=== PATIENT | male | born 1970 | race Caucasian/White ===

== ENCOUNTER 2017-08-04 15:16 | Inpatient (IN) | payer OTHER ==
--- NOTE | 2017-08-04 15:34 | PDOC ---
Rapid Medical Evaluation Chief Complaint: Edema Time Seen by Provider: 08/04/17 15:28 Medical Evaluation: Allergies Allergy/AdvReac Type Severity Reaction Status Date / Time No Known Allergies Allergy Verified 08/04/17 15:26 08/04/17 15:29 I have performed a brief in-person evaluation of this patient. The patient presents with a chief complaint of: right knee and now with worsen pain./ swelling since last Friday , no relief with Motrin . Pertinent physical exam findings: swelling/ erythema from knee down. I have ordered the following: CBC, CMP, Blood Culture x 2 The patient will proceed to the ED for further evaluation
--- NOTE | 2017-08-04 16:54 | PDOC ---
History of Present Illness - General Chief Complaint: Edema Stated Complaint: RT ANKLE SWELLING Time Seen by Provider: 08/04/17 15:28 History Source: Patient Exam Limitations: No Limitations - History of Present Illness Initial Comments: CHIEF COMPLAINT: 47 y/o afebrile male with no significant PMH c/o right lower extremity swelling and redness x 5 days. HISTORY OF PRESENT ILLNESS: the patient states he started with a small ache to his right knee a few weeks ago. 5 days ago his right leg became very swollen and red. He states he was seen at the clinic on friday and was prescribed doxycycline. He has taken it since then with no improvement. He is also taking ibuprofen for swelling. He denies pain, f/c, n/v/d, CP, SOB, cough, hemoptysis, abd pain, back pain, hematuria, dysuria, trauma to leg, recent travel, smoking history. Vital signs on arrival are within normal limits. REVIEW OF SYSTEMS: GENERAL/CONSTITUTIONAL: no fever/chills. No weakness. No weight change. MUSCULOSKELETAL: +right lower leg swelling and redness. No neck or back pain. SKIN: No rash or easy bruising. NEUROLOGIC: No headache, vertigo, loss of consciousness, or loss of sensation. PHYSICAL EXAM: VITAL_SIGNS: within normal limits GENERAL_APPEARANCE: alert, cooperative, no obvious discomfort. MENTAL_STATUS: speech clear, oriented X 3, responds appropriately to questions. NEURO: motor intact and sensory intact in injured extremity. EXTREMITIES: good pulse in injured extremity. significant edema to right lower extremity with mild erythema. No warmth to touch as compared to left LE. No calf pain. negative mauricio's sign. No streaking SKIN: warm, dry, good color. Past History - Past Medical History Allergies/Adverse Reactions: Allergies Allergy/AdvReac Type Severity Reaction Status Date / Time No Known Allergies Allergy Verified 08/04/17 15:26 Home Medications: Ambulatory Orders Doxycycline Hyclate 100 mg PO BID 08/04/17 Ibuprofen [Motrin -] 600 mg PO TID 08/04/17 COPD: No Other medical history: DENIES. - Suicide/Smoking/Psychosocial Hx Smoking History: Never smoked *Physical Exam - Vital Signs Last Vital Signs Temp Pulse Resp BP Pulse Ox 97.8 F 71 19 128/74 96 08/04/17 15:26 08/04/17 15:26 08/04/17 15:26 08/04/17 15:26 08/04/17 15:26 ED Treatment Course - LABORATORY CBC & Chemistry Diagram: 08/04/17 17:16 08/04/17 17:16 - RADIOLOGY Radiology Studies Ordered: Category Date Time Status DUPLEX VASCUL US-1 LEG [US] Stat Ultrasound 08/04/17 16:40 Ordered Medical Decision Making - Medical Decision Making A/P: 47 y/o male with cellulitis of the right LE without improvement after doxy for 3 days. Patient had negative xrays at clinic and denies trauma to affected leg. Plan is as follows: 1. Labs 2. Ultrasound 3. IV CLINDA Spoke with Dr. Mlcean and she accepted admission. miriam sal for ID consult. Patient aware of plan for admission. *DC/Admit/Observation/Transfer Diagnosis at time of Disposition: Cellulitis Qualifiers: Site of cellulitis: extremity Site of cellulitis of extremity: lower extremity Laterality: right Qualified Code(s): L03.115 - Cellulitis of right lower limb - Discharge Dispostion Condition at time of disposition: Stable Decision to Admit order: Yes - Referrals - Patient Instructions - Post Discharge Activity
[2017-08-04 17:59] LABS: BASO % 0.5 % (0-2.0); EOS % 2.9 % (0-4.5); HEMATOCRIT 39.2 % (35.4-49); HEMOGLOBIN 13.5 GM/dL (11.7-16.9); LYMPH % 29.1 % (8-40); MCH 31.6 pg (25.7-33.7); MCHC 34.3 g/dl (32.0-35.9); MEAN CELL VOLUME 92.2 fl (80-96); MEAN PLT VOLUME 8.6 fl (7.5-11.1); MONO % 7.5 % (3.8-10.2); PLATELET COUNT 239 K/MM3 (134-434); RBC 4.25 M/mm3 (4.00-5.60); WHITE BLOOD COUNT 5.8 K/mm3 (4.0-10.0)
[2017-08-04 18:21] LABS: ALBUMIN 3.8 g/dl (3.4-5.0); ALK PHOS 91 U/L (45-117); ANION GAP 7 (8-16); BILIRUBIN,TOTAL 0.5 mg/dL (0.2-1.0); BLOOD UREA NITROGEN 16 mg/dL (7-18); CALCIUM 8.5 mg/dL (8.5-10.1); CHLORIDE 107 mmol/L (98-107); CO2 26 mmol/L (21-32); CREATININE 0.8 mg/dL (0.7-1.3); GLUCOSE,RANDOM 92 mg/dL (74-106); POTASSIUM 4.3 mmol/L (3.5-5.1); SGOT/AST 18 U/L (15-37); SGPT/ALT 31 U/L (12-78); SODIUM 140 mmol/L (136-145); TOT PROT 7.3 g/dl (6.4-8.2)
[2017-08-04] MEDS ORDERED: CLINDAMYCIN 600MG PREMIX IVPB 600 MG/50 ML BAG IVPB ONE ×2 (18:22→18:26)
[2017-08-04 18:28] LABS: INR 1.02 (0.82-1.09); PROTHROMBIN TIME (PATIENT) 11.5 SEC (9.7-13.0)
[2017-08-04] MEDS ORDERED: ACETAMINOPHEN 325 MG TABLET (FP) PO PRN (20:46)
--- NOTE | 2017-08-04 20:47 | HP ---
Admitting History and Physical - Primary Care Physician PCP: Murphy Mclean - Admission History of Present Illness: the patient states he started with a small ache to his right knee a few weeks ago. 5 days ago his right leg became very swollen and red. He states he was seen at the clinic on friday and was prescribed doxycycline. He has taken it since then with no improvement. He is also taking ibuprofen for swelling. - Smoking History Smoking history: Never smoked Home Medications - Allergies Allergies/Adverse Reactions: Allergies Allergy/AdvReac Type Severity Reaction Status Date / Time No Known Allergies Allergy Verified 08/04/17 15:26 - Home Medications Home Medications: Ambulatory Orders Doxycycline Hyclate 100 mg PO BID 08/04/17 Ibuprofen [Motrin -] 600 mg PO TID 08/04/17 Physical Examination Vital Signs: Vital Signs Temperature 97.8 F 08/04/17 15:26 Pulse Rate 71 08/04/17 15:26 Respiratory Rate 19 08/04/17 15:26 Blood Pressure 128/74 08/04/17 15:26 O2 Sat by Pulse Oximetry (%) 98 08/04/17 20:22 Constitutional: Yes: No Distress HENT: Yes: Atraumatic Neck: Yes: Supple Cardiovascular: Yes: Regular Rate and Rhythm Respiratory: Yes: CTA Bilaterally Gastrointestinal: Yes: Normal Bowel Sounds Extremities: Yes: Other (rlex SWOLLEN MORE AROUND ANKLE, NONTENDER, NOT WARM OR RED) Edema: Yes Edema: RLE: 1+ Neurological: Yes: Alert, Oriented Labs: CBC, BMP 08/04/17 17:16 08/04/17 17:16 Problem List - Problems (1) Cellulitis Code(s): L03.90 - CELLULITIS, UNSPECIFIED Qualifiers: Site of cellulitis: extremity Site of cellulitis of extremity: lower extremity Laterality: right Qualified Code(s): L03.115 - Cellulitis of right lower limb Assessment/Plan Laboratory Tests 08/04/17 08/04/17 08/04/17 17:16 17:16 17:16 WBC 5.8 RBC 4.25 Hgb 13.5 Hct 39.2 MCV 92.2 MCH 31.6 MCHC 34.3 RDW 13.0 Plt Count 239 MPV 8.6 Absolute Neuts (auto) 3.5 Neutrophils % 60.0 Lymphocytes % 29.1 Monocytes % 7.5 Eosinophils % 2.9 Basophils % 0.5 Nucleated RBC % 0 PT with INR 11.50 INR 1.02 Sodium 140 Potassium 4.3 Chloride 107 Carbon Dioxide 26 Anion Gap 7 L BUN 16 Creatinine 0.8 Creat Clearance w eGFR > 60 Random Glucose 92 Calcium 8.5 Total Bilirubin 0.5 AST 18 ALT 31 Alkaline Phosphatase 91 Total Protein 7.3 Albumin 3.8 Active Medications Generic Name Dose Route Start Last Admin Trade Name Freq PRN Reason Stop Dose Admin Acetaminophen 650 mg 08/04/17 20:46 Tylenol - PO Q6H PRN FEVER Heparin Sodium (Porcine) 5,000 unit 08/04/17 22:00 Heparin - SQ BID BRAYDEN Active Medications Generic Name Dose Route Start Last Admin Trade Name Freq PRN Reason Stop Dose Admin Acetaminophen 650 mg 08/04/17 20:46 Tylenol - PO Q6H PRN FEVER Heparin Sodium (Porcine) 5,000 unit 08/04/17 22:00 Heparin - SQ BID BRAYDEN D/D R/O LYME DISEASE/ARTHRITIS CELLULITIS
[2017-08-05] MEDS: HEPARIN NA (PORCINE) 5,000 UNITS/ML 1ML VIAL SQ SCH ×3 (00:52→21:58)
[2017-08-05 08:03] LABS: BASO % 0.7 % (0-2.0); EOS % 3.1 % (0-4.5); HEMATOCRIT 37.6 % (35.4-49); HEMOGLOBIN 12.9 GM/dL (11.7-16.9); LYMPH % 28.2 % (8-40); MCH 31.5 pg (25.7-33.7); MCHC 34.5 g/dl (32.0-35.9); MEAN CELL VOLUME 91.4 fl (80-96); MEAN PLT VOLUME 8.6 fl (7.5-11.1); MONO % 7.1 % (3.8-10.2); NEUT % 60.9 % (42.8-82.8); PLATELET COUNT 215 K/MM3 (134-434); RBC 4.11 M/mm3 (4.00-5.60); RDW 12.9 % (11.9-15.9); WHITE BLOOD COUNT 5.4 K/mm3 (4.0-10.0)
[2017-08-05 08:37] VITALS: BMI 27.8
[2017-08-05] MEDS ORDERED: PT OWN MED DRAWER 7, Y5N ONE ×2 (10:07→17:27)
[2017-08-05] MEDS: DOXYCYCLINE HYCLATE 100 MG CAPSULE PO SCH ×2 (10:15→17:39)
[2017-08-05 11:43] LABS: CHLORIDE 109 mmol/L (98-107); SODIUM 142 mmol/L (136-145)
[2017-08-05 12:04] LABS: ALBUMIN 3.4 g/dl (3.4-5.0); ALK PHOS 78 U/L (45-117); ANION GAP 11 (8-16); BILIRUBIN,TOTAL 0.5 mg/dL (0.2-1.0); BLOOD UREA NITROGEN 14 mg/dL (7-18); CALCIUM 8.4 mg/dL (8.5-10.1); CO2 22 mmol/L (21-32); CREATININE 0.7 mg/dL (0.7-1.3); GLUCOSE,RANDOM 106 mg/dL (74-106); SGOT/AST 18 U/L (15-37); SGPT/ALT 30 U/L (12-78); TOT PROT 6.4 g/dl (6.4-8.2)
--- NOTE | 2017-08-05 12:51 | CON.ID ---
Consult Consult Specialty:: infectious diseases Reason for Consultation:: swelling of the leg. pain of the leg - History of Present Illness Chief Complaint: swelling of the leg History of Present Illness: the patient states he started with a small ache to his right knee a few weeks ago. 5 days ago his right leg became very swollen and red. He states he was seen at the clinic on friday and was prescribed doxycycline. He has taken it since then with no improvement. He is also taking ibuprofen for swelling. He denies pain, f/c, n/v/d, CP, SOB, cough, hemoptysis, abd pain, back pain, hematuria, dysuria, trauma to leg, recent travel, smoking history. patients work up was send including lymes work up from the clinic - History Source History Provided By: Patient Limitations to Obtaining History: No Limitations - Alcohol/Substance Use Hx Alcohol Use: No - Smoking History Smoking history: Never smoked Home Medications - Allergies Allergies/Adverse Reactions: Allergies Allergy/AdvReac Type Severity Reaction Status Date / Time No Known Allergies Allergy Verified 08/04/17 15:26 - Home Medications Home Medications: Ambulatory Orders Doxycycline Hyclate 100 mg PO BID 08/04/17 Ibuprofen [Motrin -] 600 mg PO TID 08/04/17 Doxycycline Hyclate [Vibramycin -] 100 mg PO BID@1000,1800 #54 capsule 08/06/17 Review of Systems - Review of Systems Constitutional: reports: No Symptoms Eyes: reports: No Symptoms HENT: reports: No Symptoms Neck: reports: No Symptoms Cardiovascular: reports: No Symptoms Respiratory: reports: No Symptoms Gastrointestinal: reports: No Symptoms Genitourinary: reports: No Symptoms Musculoskeletal: reports: No Symptoms, Other Integumentary: reports: Other Neurological: reports: No Symptoms Endocrine: reports: No Symptoms Hematology/Lymphatic: reports: No Symptoms Psychiatric: reports: No Symptoms Physical Exam Vital Signs: Vital Signs Temperature 99.3 F 08/05/17 09:36 Pulse Rate 66 08/05/17 09:36 Respiratory Rate 18 08/05/17 09:36 Blood Pressure 125/75 08/05/17 09:36 O2 Sat by Pulse Oximetry (%) 95 08/05/17 09:00 Constitutional: Yes: Well Nourished, No Distress, Calm Cardiovascular: Yes: Regular Rate and Rhythm Respiratory: Yes: Regular, CTA Bilaterally Gastrointestinal: Yes: Normal Bowel Sounds, Soft Extremities: Yes: Other (small gera seen on the knee joint) Integumentary: Yes: WNL Wound/Incision: Yes: Clean/Dry Neurological: Yes: Alert, Oriented Psychiatric: Yes: Alert, Oriented Labs: CBC, BMP 08/05/17 07:30 08/05/17 07:30 Assessment/Plan looking at this leg i think the cellulitis is very mnimal leg and ankle is more swollen ortho going to ahve a look at the patient Problem List - Problems (1) Cellulitis Code(s): L03.90 - CELLULITIS, UNSPECIFIED Qualifiers: Site of cellulitis: extremity Site of cellulitis of extremity: lower extremity Laterality: right Qualified Code(s): L03.115 - Cellulitis of right lower limb 2 swelling of the rt ;leg plan will start patient on abx continue doxy await for the report results from outside iof lymes positive stop all abx except doxy to be taken for a month
--- NOTE | 2017-08-05 19:08 | PN ---
Progress Note, Physician - Current Medication List Current Medications: Active Medications Acetaminophen (Tylenol -) 650 mg PO Q6H PRN PRN Reason: FEVER Doxycycline Hyclate (Vibramycin -) 100 mg PO BID@1000,1800 [facility] Last Admin: 08/05/17 17:39 Dose: 100 mg Heparin Sodium (Porcine) (Heparin -) 5,000 unit SQ BID [facility] Last Admin: 08/05/17 10:14 Dose: 5,000 unit - Objective Vital Signs: Vital Signs Temperature 98.3 F 08/05/17 18:00 Pulse Rate 59 L 08/05/17 18:00 Respiratory Rate 19 08/05/17 18:00 Blood Pressure 104/65 08/05/17 18:00 O2 Sat by Pulse Oximetry (%) 95 08/05/17 09:00 Constitutional: Yes: No Distress HENT: Yes: Atraumatic Neck: Yes: Supple Cardiovascular: Yes: Regular Rate and Rhythm Respiratory: Yes: CTA Bilaterally Gastrointestinal: Yes: Normal Bowel Sounds Extremities: Yes: WNL Edema: Yes Edema: RLE: 1+ Neurological: Yes: Alert, Oriented Labs: CBC, BMP 08/05/17 07:30 08/05/17 07:30 INR, PTT INR 1.02 (0.82-1.09) 08/04/17 17:16 Problem List - Problems (1) Cellulitis Assessment/Plan: on abx Code(s): L03.90 - CELLULITIS, UNSPECIFIED Qualifiers: Site of cellulitis: extremity Site of cellulitis of extremity: lower extremity Laterality: right Qualified Code(s): L03.115 - Cellulitis of right lower limb (2) Ankle swelling Assessment/Plan: lyme titer pending Code(s): M25.473 - EFFUSION, UNSPECIFIED ANKLE
[2017-08-06] MEDS: DOXYCYCLINE HYCLATE 100 MG CAPSULE PO SCH ×2 (10:01→18:09)
[2017-08-06] MEDS: HEPARIN NA (PORCINE) 5,000 UNITS/ML 1ML VIAL SQ SCH (10:02)
--- NOTE | 2017-08-06 13:44 | CON.ORTH ---
Consult Reason for Consultation:: right ankle swelling - Alcohol/Substance Use Hx Alcohol Use: No - Smoking History Smoking history: Never smoked Home Medications - Allergies Allergies/Adverse Reactions: Allergies Allergy/AdvReac Type Severity Reaction Status Date / Time No Known Allergies Allergy Verified 08/04/17 15:26 - Home Medications Home Medications: Ambulatory Orders Doxycycline Hyclate 100 mg PO BID 08/04/17 Ibuprofen [Motrin -] 600 mg PO TID 08/04/17 Physical Exam for Ortho Vital Signs: Vital Signs Temperature 98.0 F 08/06/17 10:00 Pulse Rate 69 08/06/17 10:00 Respiratory Rate 18 08/06/17 10:00 Blood Pressure 105/63 08/06/17 10:00 O2 Sat by Pulse Oximetry (%) 98 08/06/17 09:00 Labs: CBC, BMP 08/05/17 07:30 08/05/17 07:30 INR, PTT INR 1.02 (0.82-1.09) 08/04/17 17:16 - Lower Extremity Knee: Yes: Right, Erythema, Pain, Swelling, Other (nvi) Ankle: Yes: Right, Limited ROM, Swelling, Other (minimal tenderness, nvi) Imaging - Results Ultrasound: Report Reviewed, Image Reviewed Assessment/Plan 47 y/o afebrile male with no significant PMH c/o right lower extremity swelling and redness x 5 days. The patient states he started with a small ache to his right knee a few weeks ago. 5 days ago his right leg became very swollen and red. Does not recall any tick bites. He states he was seen at the clinic on friday and was prescribed doxycycline. He has taken it since then with no improvement. He is also taking ibuprofen for swelling. He denies pain, f/c, n/ v/d, CP, SOB, cough, hemoptysis, abd pain, back pain, hematuria, dysuria, trauma to leg, recent travel, smoking history. As per patient Lyme test came back positive as per PCP today. Lyme pending from here. a/p right ankle swelling- Lyme disease f/u official Lyme test from hospital continue doxycycline NSAIDs ID f/u wbat elevation ok to d/c from ortho pov d/w Dr. Velásquez
[2017-08-06] MEDS ORDERED: CELECOXIB 200 MG CAPSULE PO SCH (13:45)
[2017-08-06 14:51] VITALS: BP 94/56; PULSE 64; TEMP 98.2
--- NOTE | 2017-08-06 15:29 | PN ---
Progress Note, Physician History of Present Illness: patientr doing well swelling and erythema of the leg has decreased his lymes titres from the previous blood work from the other place is positive from lab here is negative - Current Medication List Current Medications: Active Medications Acetaminophen (Tylenol -) 650 mg PO Q6H PRN PRN Reason: FEVER Celecoxib (Celebrex -) 200 mg PO BID [facility]END[facility] SALE TO [facility] Doxycycline Hyclate (Vibramycin -) 100 mg PO BID@1000,1800 [facility] Last Admin: 08/06/17 10:01 Dose: 100 mg Heparin Sodium (Porcine) (Heparin -) 5,000 unit SQ BID [facility] Last Admin: 08/06/17 10:02 Dose: 5,000 unit - Objective Vital Signs: Vital Signs Temperature 98.2 F 08/06/17 14:45 Pulse Rate 64 08/06/17 14:45 Respiratory Rate 20 08/06/17 14:45 Blood Pressure 94/56 08/06/17 14:45 O2 Sat by Pulse Oximetry (%) 98 08/06/17 09:00 Constitutional: Yes: No Distress, Calm Cardiovascular: Yes: Regular Rate and Rhythm Respiratory: Yes: Regular, CTA Bilaterally Gastrointestinal: Yes: Normal Bowel Sounds, Soft Musculoskeletal: Yes: Other Extremities: Yes: Other (swelling of the left ext improving,erythema has improved) Wound/Incision: Yes: Clean/Dry Neurological: Yes: Alert, Oriented Psychiatric: Yes: Alert, Oriented Labs: CBC, BMP 08/05/17 07:30 08/05/17 07:30 INR, PTT INR 1.02 (0.82-1.09) 08/04/17 17:16 Assessment/Plan Problem List - Problems (1) Cellulitis Code(s): L03.90 - CELLULITIS, UNSPECIFIED Qualifiers: Site of cellulitis: extremity Site of cellulitis of extremity: lower extremity Laterality: right Qualified Code(s): L03.115 - Cellulitis of right lower limb (2) Ankle swelling Code(s): M25.473 - EFFUSION, UNSPECIFIED ANKLE 3 lymes plan continue abx will need doxy for 30 days elevation of the leg rest as per the team
--- NOTE | 2017-08-06 19:39 | DS ---
Physical Examination Vital Signs: Vital Signs Temperature 98.2 F 08/06/17 14:45 Pulse Rate 64 08/06/17 14:45 Respiratory Rate 20 08/06/17 14:45 Blood Pressure 94/56 08/06/17 14:45 O2 Sat by Pulse Oximetry (%) 98 08/06/17 09:00 Constitutional: Yes: No Distress HENT: Yes: Atraumatic Neck: Yes: Supple Cardiovascular: Yes: Regular Rate and Rhythm Respiratory: Yes: CTA Bilaterally Gastrointestinal: Yes: Normal Bowel Sounds Extremities: Yes: WNL Edema: RLE: 1+ Neurological: Yes: Alert, Oriented Labs: CBC, BMP 08/05/17 07:30 08/05/17 07:30 Discharge Summary Reason For Visit: CELLULITIS Current Active Problems Ankle swelling (Acute) Cellulitis (Acute) Condition: Stable - Instructions Diet, Activity, Other Instructions: need to take doxy for total 30 days has taken 3 days in hospital now giving prescription for 27 days keep leg elevated see your pmd 1 week - Home Medications Comprehensive Discharge Medication List: Ambulatory Orders Doxycycline Hyclate 100 mg PO BID 08/04/17 Ibuprofen [Motrin -] 600 mg PO TID 08/04/17 Doxycycline Hyclate [Vibramycin -] 100 mg PO BID@1000,1800 #54 capsule 08/06/17 po doxy total of 30 days
== END 2017-08-06 20:11 | disposition home or self-care (01) | DRG 383 ==
LOC: JER 15:16 → JERBED 17:55 → J5S 21:36
PROVIDERS: ADMIT Internal Medicine; ATTEND Internal Medicine
DX: L03.115 Cellulitis of right lower limb (principal); M25.473 Effusion, unspecified ankle
CPT/HCPCS: 36415; 80053; 85025; 85610; 86618; 93971-TC; 99284-25; J1644

== ENCOUNTER 2020-12-27 10:04 | Emergency (ER) | payer OTHER ==
[2020-12-27 10:19] VITALS: BP 110/73; PULSE 60; TEMP 98.3; BMI 29.6
[2020-12-27] MEDS ORDERED: ACETAMINOPHEN 1000 MG/100 ML VIAL IVPB ONE (11:12)
[2020-12-27] MEDS ORDERED: SODIUM CHLORIDE 0.9% 500 ML INFUS.BAG IV ONE (11:12)
[2020-12-27] MEDS ORDERED: ACETAMINOPHEN INJECTION 100 ML IVPB ONE (11:39)
[2020-12-27 12:07] LABS: BASO % 0.4 % (0-2.0); EOS % 3.1 % (0-4.5); HEMATOCRIT 42.5 % (35.4-49); HEMOGLOBIN 14.8 GM/dL (11.7-16.9); LYMPH % 33.9 % (8-40); MCH 31.9 pg (25.7-33.7); MCHC 34.9 g/dl (32.0-35.9); MEAN CELL VOLUME 91.5 fl (80-96); MEAN PLT VOLUME 8.2 fl (7.5-11.1); MONO % 6.6 % (3.8-10.2); PLATELET COUNT 256 10^3/uL (134-434); RBC 4.65 M/mm3 (4.00-5.60); RDW 13.2 % (11.9-15.9); WHITE BLOOD COUNT 6.8 K/mm3 (4.0-10.0)
[2020-12-27 12:27] LABS: ALBUMIN 3.9 g/dl (3.4-5.0)
[2020-12-27 12:30] LABS: CREATININE 0.8 mg/dL (0.55-1.3)
[2020-12-27 12:32] LABS: BILIRUBIN,TOTAL 0.6 mg/dL (0.2-1); TOT PROT 7.8 g/dl (6.4-8.2)
[2020-12-27 12:43] LABS: URINE APPEARANCE CLEAR; URINE BILIRUBIN NEGATIVE (NEGATIVE); URINE COLOR YELLOW; URINE GLUCOSE (UA) NEGATIVE (NEGATIVE); URINE KETONE NEGATIVE (NEGATIVE); URINE LEUK ESTERASE NEGATIVE (NEGATIVE); URINE NITRITE NEGATIVE (NEGATIVE); URINE PROTEIN NEGATIVE (NEGATIVE); URINE UROBILINOGEN 0.2 mg/dL (0.2-1.0)
== END 2020-12-27 14:11 | disposition home or self-care (01) ==
LOC: JER 10:04 → JERFT 10:04
PROC: 3E033NZ Introduction of Analgesics, Hypnotics, Sedatives into Peripheral Vein, Percutaneous Approach (ICD-10-PCS; principal; 2020-12-27)
DX: R10.30 Lower abdominal pain, unspecified (principal)
CPT/HCPCS: 36415; 74177-TC; 80053; 81003; 85025; 87086; 96374; 99285-25; J0131; Q9967